=== PATIENT | male | born 1990 ===

== ENCOUNTER 2021-01-22 06:52 | Inpatient (IN) | payer MEDICAID, OTHER ==
[~2021-01-22] VITALS: Ht 172.7 cm; Wt 62.6 kg
[2021-01-22] MEDS ORDERED: METOCLOPRAMIDE HCL 10 MG/2 ML VIAL IV ONE (07:45)
[2021-01-22] MEDS ORDERED: KETOROLAC TROMETHAMINE 15 MG INJ IVP ONE (07:45)
[2021-01-22] MEDS ORDERED: IV NORMAL SALINE 1000 ML BAG IV ONE (07:45)
--- NOTE | 2021-01-22 07:46 | NUR ---
PT IS IN ROOM #2B. DR WHITLEY EVALUATED THE PT.
[2021-01-22 07:55] LABS: HEMATOCRIT 45.2 % (36.7-47.1); MEAN CORPUSCULAR HEMOGLOBIN 30.4 uug (23.8-33.4); MEAN CORPUSCULAR VOLUME 89.3 fL (73.0-96.2); PLATELET COUNT (AUTO) 265 K/uL (152-348)
[2021-01-22] MEDS ORDERED: KETOROLAC TROMETHAMINE 15 MG INJ ONE (07:56)
[2021-01-22] MEDS ORDERED: METOCLOPRAMIDE HCL 10 MG/2 ML VIAL ONE (07:56)
[2021-01-22 08:51] LABS: *BILIRUBIN,URIN 1+ (NEGATIVE); *BLOOD, URINE NEGATIVE (NEGATIVE); *COLOR,URINE YELLOW (YELLOW); *KETONES,URINE 2+ (NEGATIVE); LEUKOCYTE ESTERASE ,URINE NEGATIVE (NEGATIVE); NITRITE, URINE NEGATIVE (NEGATIVE); UGLUCOSE NEGATIVE (NEGATIVE)
[2021-01-22 08:53] LABS: ALKALINE PHOSPHATASE 119 U/L (50-136); ASPARTATE AMINOTRANSFERASE 51 U/L (15-37); BILIRUBIN,DIRECT 0.4 mg/dL (0.0-0.2); CARBON DIOXIDE 27 mmol/L (21-32); CHLORIDE 97 mmol/L (98-107); GLUCOSE 112 mg/dL (74-106); LIPASE 87 U/L (73-393); POTASSIUM 3.9 mmol/L (3.5-5.1); TOTAL PROTEIN, SERUM 8.3 g/dL (6.4-8.2); UREA NITROGEN, BLOOD 11 mg/dL (7-18)
[2021-01-22] MEDS ORDERED: IOHEXOL 300MG/ML 100 ML INFUS..BTL ONE (09:15)
[2021-01-22] MEDS ORDERED: SWABABLE VALVE TRANSFER SET EA MC ONE (09:16)
[2021-01-22] MEDS ORDERED: IV NORMAL SALINE 250 ML IV ONE (09:16)
[2021-01-22 09:20] LABS: BILIRUBIN,TOTAL 1.1 mg/dL (0.2-1.0)
[2021-01-22 09:21] LABS: *CLARITY,URINE SLIGHTLY CLOUDY (CLEAR)
[2021-01-22 09:28] LABS: MUCUS,URINE MANY /LPF (0-FEW)
[2021-01-22 09:31] LABS: RBC,URINE NONE SEEN /HPF (0-3); WBC,URINE NONE SEEN /HPF (0-3)
[2021-01-22 09:38] LABS: ALANINE AMINOTRANSFERASE < 6 U/L (16-63)
--- NOTE | 2021-01-22 10:16 | NUR ---
DR JR CHAN WAS CALLED AVCCORDING TO DR WHITLEY REQUEST. MESSAGE WAS LEFT.
[2021-01-22] MEDS ORDERED: ACETAMINOPHEN 325 MG TABLET PO PRN (11:15)
[2021-01-22] MEDS ORDERED: LABETALOL HCL 100 MG/20 ML VIAL IV PRN (11:15)
[2021-01-22] MEDS ORDERED: HYDROCODONE/APAP 5-325MG TABLET PO PRN (11:15)
[2021-01-22] MEDS ORDERED: hydrALAZINE HCL 20 MG/1 ML VIAL IV PRN (11:15)
[2021-01-22] MEDS ORDERED: ONDANSETRON 4 MG/2 ML VIAL IV PRN (11:15)
[2021-01-22] MEDS ORDERED: MAGNESIUM HYDROXIDE 30 ML LIQUID UDC PO PRN (11:15)
[2021-01-22] MEDS: MORPHINE SULFATE 2 MG/1 ML DISP.SYRIN IV PRN ×2 (11:18→19:34)
[2021-01-22] MEDS: CEFTRIAXONE 1 G in IV DEXTROSE 5% 50 ML IV SCH (11:18)
[2021-01-22] MEDS ORDERED: MORPHINE SULFATE 2 MG/1 ML DISP.SYRIN ONE ×2 (11:27→19:37)
[2021-01-22] MEDS ORDERED: CEFTRIAXONE /D5W 50ML IVPB **ER PYXIS IV ONE (11:28)
[2021-01-22] MEDS ORDERED: METRONIDAZOLE 500 MG/NS 100ML 100 ML IV ONE ×2 (11:28→20:12)
[2021-01-22] MEDS: METRONIDAZOLE 500 MG/NS 100 ML PIGGYBACK IV SCH ×2 (11:48→20:12)
--- NOTE | 2021-01-22 12:52 | NUR ---
PT IS NPO ACCORDING TO DR ROCIO HOPE.
[2021-01-23] MEDS ORDERED: METRONIDAZOLE 500 MG/NS 100ML 100 ML IV ONE ×4 (04:19→23:27)
[2021-01-23] MEDS: METRONIDAZOLE 500 MG/NS 100 ML PIGGYBACK IV SCH ×3 (04:38→21:13)
[2021-01-23 05:42] LABS: HEMATOCRIT 42.8 % (36.7-47.1); MEAN CORPUSCULAR HEMOGLOBIN 30.2 uug (23.8-33.4); MEAN CORPUSCULAR VOLUME 88.8 fL (73.0-96.2); PLATELET COUNT (AUTO) 253 K/uL (152-348)
[2021-01-23 05:54] LABS: ALANINE AMINOTRANSFERASE < 6 U/L (16-63); ALKALINE PHOSPHATASE 119 U/L (50-136); ASPARTATE AMINOTRANSFERASE 37 U/L (15-37); BILIRUBIN,TOTAL 1.3 mg/dL (0.2-1.0); CARBON DIOXIDE 24 mmol/L (21-32); CHLORIDE 99 mmol/L (98-107); CREATININE 0.9 mg/dL (0.6-1.3); GLUCOSE 101 mg/dL (74-106); PHOSPHOROUS 2.4 mg/dL (2.5-4.9); POTASSIUM 3.4 mmol/L (3.5-5.1); TOTAL PROTEIN, SERUM 7.3 g/dL (6.4-8.2); UREA NITROGEN, BLOOD 9 mg/dL (7-18)
[2021-01-23] MEDS ORDERED: ENOXAPARIN SODIUM 30 MG/0.3 ML DISP.SYRIN SUBCUT ONE (06:00)
[2021-01-23] MEDS ORDERED: CEFTRIAXONE /D5W 50ML IVPB **ER PYXIS IV ONE (08:54)
[2021-01-23] MEDS: CEFTRIAXONE 1 G in IV DEXTROSE 5% 50 ML IV SCH (08:56)
[2021-01-23] MEDS ORDERED: AMOX-430 PO (09:20)
[2021-01-23] MEDS ORDERED: OXYC-128 PO (09:20)
[2021-01-23] MEDS: POTASSIUM CHLORIDE 50 ML IV SCH ×2 (09:44→10:37)
[2021-01-23] MEDS ORDERED: POTASSIUM CHLORIDE 100 ML ONE (09:49)
--- NOTE | 2021-01-23 10:22 | NUR ---
Dr Melendez at the bedside for MSE.
[2021-01-23] MEDS ORDERED: NEUTRA PHOS PACKET PO ONE (15:15)
[2021-01-23] MEDS: MORPHINE SULFATE 2 MG/1 ML DISP.SYRIN IV PRN ×2 (16:11→21:45)
[2021-01-23] MEDS ORDERED: MORPHINE SULFATE 2 MG/1 ML DISP.SYRIN ONE (16:14)
--- NOTE | 2021-01-23 18:53 | NUR ---
Pt denies pain/discomfort, no nausea/vomitting. Awaiting for m/s bed.
--- NOTE | 2021-01-23 20:38 | NUR ---
Report given to Bushra ROWE Medsurg.
--- NOTE | 2021-01-23 21:00 | NUR ---
Admitted a 30 y/o male to [facility] with an admitting diagnosis of Cholecystitis. Transferred to bed on his own. Repositioned comfortably in bed. Pt is A&Ox3, verbally responsive. No signs of respiratory distress noted. Reports abdominal pain but bearable at this time. Pt also has R leg BKA. Belongings checked and placed at bedside. IV access intact and patent. Admission care rendered, safety measures initiated, call light within reach.
[2021-01-23 21:31] VITALS: BP 106/57
[2021-01-24] MEDS: METRONIDAZOLE 500 MG/NS 100 ML PIGGYBACK IV SCH (04:10)
[2021-01-24 04:45] VITALS: BP 103/57
--- NOTE | 2021-01-24 06:32 | NUR ---
Slept through the night, pain medication administered as needed, tolerated medications well. NPO status. No significant change in condition noted. Safety measures maintained at all times.
[2021-01-24 06:58] LABS: POTASSIUM 3.7 mmol/L (3.5-5.1)
[2021-01-24] MEDS: CEFTRIAXONE 1 G in IV DEXTROSE 5% 50 ML IV SCH (08:04)
[2021-01-24] MEDS: MORPHINE SULFATE 2 MG/1 ML DISP.SYRIN IV PRN ×2 (09:26→15:38)
[2021-01-24] MEDS: METRONIDAZOLE 500 MG/NS 100ML 500 MG in PREMIXED 1 EACH IV SCH ×2 (11:04→19:53)
[2021-01-24 11:21] VITALS: BP 106/71
[2021-01-24 11:26] VITALS: BP 106/71
[2021-01-24 15:11] VITALS: BP 126/68
[2021-01-24] MEDS: IV 1/2NS 1000 ML 1,000 ML IV SCH (18:40)
[2021-01-24 20:24] VITALS: BP 115/56
[2021-01-25] MEDS: METRONIDAZOLE 500 MG/NS 100ML 500 MG in PREMIXED 1 EACH IV SCH ×3 (03:07→20:03)
[2021-01-25 04:27] VITALS: BP 100/53
[2021-01-25] MEDS: IV 1/2NS 1000 ML 1,000 ML IV SCH ×3 (06:35→20:03)
[2021-01-25 06:38] LABS: HEMATOCRIT 40.8 % (36.7-47.1); MEAN CORPUSCULAR HEMOGLOBIN 30.5 uug (23.8-33.4); MEAN CORPUSCULAR VOLUME 88.4 fL (73.0-96.2); PLATELET COUNT (AUTO) 280 K/uL (152-348)
[2021-01-25 06:50] LABS: PHOSPHOROUS 2.8 mg/dL (2.5-4.9); POTASSIUM 3.8 mmol/L (3.5-5.1)
[2021-01-25 07:23] LABS: BAND % (MANUAL) 1 % (0-10); EOSINOPHILS % (MANUAL) 1 % (0-8); LYMPHOCYTES % (MANUAL) 8 % (20-40); METAMYELOCYTES % 1 % (0-1); MONOCYTES % (MANUAL) 29 % (2-10); NEUTROPHILS % (MANUAL) 60 % (42-75)
[2021-01-25] MEDS: MORPHINE SULFATE 2 MG/1 ML DISP.SYRIN IV PRN ×4 (07:49→23:30)
--- NOTE | 2021-01-25 07:50 | NUR ---
PATIENT C/O HAVING ABDOMINAL PAIN MEDICATED WITH MORPHINE ORDERED REMAIN ON IVF ORDERED AND IV ATB WITH NO ADVERSE OR ALLERGIC REACTIONS AT THIS TIME CALL LIGHTS CALL LIGHTS AND HIS PERSONAL BELONGINGS ARE WITHIN EASY REACH MADE COMFORTABLE AND WILL CONTINUE TO OBSERVE.
[2021-01-25] MEDS: CEFTRIAXONE 1 G in IV DEXTROSE 5% 50 ML IV SCH (08:39)
[2021-01-25 11:54] VITALS: BP 135/77
[2021-01-25] MEDS ORDERED: MIDAZOLAM HCL 2 MG/2 ML VIAL ONE (14:46)
[2021-01-25] MEDS ORDERED: FENTANYL CITRATE 250 MCG/5 ML AMPUL ONE (14:46)
[2021-01-25] MEDS ORDERED: ROCURONIUM BROMIDE 50 MG/5 ML VIAL ONE (14:47)
[2021-01-25] MEDS ORDERED: HYDROMORPHONE 2 MG/1 ML DISP.SYRIN ONE (14:47)
[2021-01-25] MEDS ORDERED: BUPIVACAINE/EPI PF 0.25% 30 ML VIAL ONE (14:58)
[2021-01-25] MEDS ORDERED: LIDOCAINE HCL 1% 20 ML VIAL ONE (14:58)
--- NOTE | 2021-01-25 15:14 | NUR ---
PATIENT PICKED UP BY BED TO THE BASEMENT FOR THE SCHEDULED SURGERY PATIENT HAS A LOW GRADE FEVER OF 99.4 AT THIS TIME THE NURSE PICKING HIM UP AWARE OF PATIENTS TEMP.
[2021-01-25 15:30] VITALS: BP 129/72
[2021-01-25] MEDS ORDERED: ACETAMINOPHEN 325 MG TABLET PO PRN (17:00)
[2021-01-25] MEDS ORDERED: IBUPROFEN 400 MG TABLET PO PRN (17:00)
[2021-01-25] MEDS ORDERED: SEVOFLURANE 250 ML BOTTLE ONE (17:25)
[2021-01-25] MEDS ORDERED: CEFAZOLIN 1 G VIAL IM ONE (18:00)
[2021-01-25] MEDS ORDERED: GLYCOPYRROLATE 0.2 MG/ML VIAL IJ ONE (18:00)
[2021-01-25] MEDS ORDERED: DEXAMETHASONE SOD PHOSPHATE 4 MG INJ IV ONE (18:00)
--- NOTE | 2021-01-25 19:05 | NUR ---
Received pt from Post-op. Alert and oriented x4, no signs of respiratory distress. Put on oxygen at 2LPM via NC. AN drain noted on R abdomen, draining well. 2 small abdominal wounds with steri strips, no signs of soilage. IV access intact and patent. On SCD pumps. Stable.
[2021-01-25 20:00] VITALS: BP 126/80
[2021-01-26] VITALS: BP 131/77
[2021-01-26] MEDS: MORPHINE SULFATE 2 MG/1 ML DISP.SYRIN IV PRN ×3 (03:27→23:41)
[2021-01-26] MEDS: METRONIDAZOLE 500 MG/NS 100ML 500 MG in PREMIXED 1 EACH IV SCH ×3 (03:32→19:41)
[2021-01-26 04:00] VITALS: BP 113/73
[2021-01-26 06:07] LABS: HEMATOCRIT 40.6 % (36.7-47.1); MEAN CORPUSCULAR HEMOGLOBIN 30.2 uug (23.8-33.4); MEAN CORPUSCULAR VOLUME 88.3 fL (73.0-96.2); PLATELET COUNT (AUTO) 331 K/uL (152-348)
[2021-01-26 06:19] LABS: ALKALINE PHOSPHATASE 148 U/L (50-136); ASPARTATE AMINOTRANSFERASE 80 U/L (15-37); BILIRUBIN,TOTAL 0.2 mg/dL (0.2-1.0); CARBON DIOXIDE 27 mmol/L (21-32); CHLORIDE 99 mmol/L (98-107); GLUCOSE 118 mg/dL (74-106); LIPASE 47 U/L (73-393); MAGNESIUM 1.9 mg/dL (1.8-2.4); PHOSPHOROUS 3.1 mg/dL (2.5-4.9); POTASSIUM 4.3 mmol/L (3.5-5.1); TOTAL PROTEIN, SERUM 6.9 g/dL (6.4-8.2); UREA NITROGEN, BLOOD 9 mg/dL (7-18)
[2021-01-26 06:50] LABS: ALANINE AMINOTRANSFERASE < 6 U/L (16-63)
--- NOTE | 2021-01-26 06:51 | NUR ---
Pt on clear liquids, tolerated diet well. Pain medications administered as needed. Instructions given on how to use the incentive spirometer. Pt verbalized understanding. Drained 17.5 cc of sanguinous discharge from AN. Dressings intact, no signs of soilage. Safety measures maintained at all times. All needs attended to and met.
[2021-01-26] MEDS: ENOXAPARIN SODIUM 40 MG/0.4 ML DISP.SYRIN SQ SCH (09:47)
[2021-01-26] MEDS: CEFTRIAXONE 1 G in IV DEXTROSE 5% 50 ML IV SCH (10:11)
--- NOTE | 2021-01-26 10:14 | NUR ---
c/o pain on the surgical site- medicated with Morphine 2mg iv as ordered abdominal scope sites clean with dsg, AN drain compressed for suction with small amount of reddish drainage noted, instructed on plan of care- verbalized understanding, no flatus yet, on clear liquids, call light within reach
[2021-01-26] MEDS: IV 1/2NS 1000 ML 1,000 ML IV SCH (10:17)
[2021-01-26 11:20] VITALS: BP 130/70
--- NOTE | 2021-01-26 13:00 | NUR ---
seen by Virginia Molina [employer]- see notes
[2021-01-26 14:28] LABS: LYMPHOCYTES % (MANUAL) 15 % (20-40); MONOCYTES % (MANUAL) 15 % (2-10); NEUTROPHILS % (MANUAL) 70 % (42-75)
[2021-01-26 15:55] VITALS: BP 117/79
--- NOTE | 2021-01-26 17:26 | NUR ---
waiting for to bring shoes eva able to walk, no distress noted, all needs attended and met call light within reach
[2021-01-26] MEDS: HYDROCODONE/APAP 5-325MG TABLET PO PRN (17:39)
[2021-01-26 20:10] VITALS: BP 109/74
[2021-01-27] MEDS: IV 1/2NS 1000 ML 1,000 ML IV SCH ×2 (00:44→12:36)
[2021-01-27] MEDS: HYDROCODONE/APAP 5-325MG TABLET PO PRN (02:35)
[2021-01-27] MEDS: METRONIDAZOLE 500 MG/NS 100ML 500 MG in PREMIXED 1 EACH IV SCH ×2 (03:10→12:36)
[2021-01-27 04:14] VITALS: BP_SYST 122; BP_SYST 125; BP_DIAS 81; BP_DIAS 86
--- NOTE | 2021-01-27 07:30 | NUR ---
Received patient lying on his bed. Pain medication given at the start of the shift. Jpratt, intact, noted with minimal output. Dressing intact to the incision site. Will monitor for passing of gas. Patient is on liquid diet. Will continue to monitor.
[2021-01-27 08:27] VITALS: BP 127/89
[2021-01-27] MEDS: CEFTRIAXONE 1 G in IV DEXTROSE 5% 50 ML IV SCH (08:39)
[2021-01-27] MEDS: ENOXAPARIN SODIUM 40 MG/0.4 ML DISP.SYRIN SQ SCH (08:41)
--- NOTE | 2021-01-27 10:30 | NUR ---
Per Dr. Ruth, patient may discharge. Awaiting for surgeon to make rounds. Patient was noted with passing of gas, informed MD. Will continue to monitor.
[2021-01-27 10:57] VITALS: BP 119/45
[2021-01-27 15:01] VITALS: BP 111/68
--- NOTE | 2021-01-27 16:00 | NUR ---
Assisted CHARLI Wright on removal of the Jpratt drain. Patient tolerated the procedure well. denies pain. Will continue to monitor.
--- NOTE | 2021-01-27 18:00 | NUR ---
Patient discharge via private car ([employer]) arranged by the CM. Stable condition, VS WNL. All belongings signed and received. Discharge instructions given and signed. No distress identified. Dressing intact. No pain identified. All due meds given. Kept safe. Skin intact.
== END 2021-01-27 18:00 | disposition home or self-care (01) | DRG 710 ==
LOC: ER 06:54 → TRANSITION 15:42 → MEDSURG3 01-23 20:45
PROVIDERS: ADMIT Internal Medicine; ATTEND Internal Medicine
PROC: 0FB04ZX Excision of Liver, Percutaneous Endoscopic Approach, Diagnostic (ICD-10-PCS; principal; 2021-01-25)
PROC: 0FT44ZZ Resection of Gallbladder, Percutaneous Endoscopic Approach (ICD-10-PCS; principal; 2021-01-25)
DX: A41.9 Sepsis, unspecified organism (principal); E44.0 Moderate protein-calorie malnutrition; K80.00 Calculus of gallbladder with acute cholecystitis without obstruction; E86.0 Dehydration; Z89.511 Acquired absence of right leg below knee; E66.9 Obesity, unspecified; Z68.21 Body mass index [BMI] 21.0-21.9, adult; Z20.822 Contact with and (suspected) exposure to COVID-19; E87.6 Hypokalemia
CPT/HCPCS: 36415; 70030-TC; 71045; 74181; 83690; 83735; 84100; 85025; 85730; 88313-TC; 93005; A4663; G0378; J0690; J0696; J1100; J1170; J1650; J1885; J2250; J2270; J2765; J3010; J3480; J3490; J7030; J7050; J7060; Q9967